=== PATIENT | female | born 1995 | race American Indian/Alaskan Native ===

== ENCOUNTER 2017-08-21 16:17 | Emergency (ER) | payer SELFPAY | END 2017-08-21 16:33 | disposition left against medical advice (07) | LOC: ED 16:17 | DX: R11.10 Vomiting, unspecified (principal); Z53.21 Procedure and treatment not carried out due to patient leaving prior to being seen by health care provider ==

== ENCOUNTER 2017-12-19 11:25 | Emergency (ER) | payer SELFPAY ==
[2017-12-19 11:33] VITALS: BP 102/69
--- NOTE | 2017-12-19 13:23 | Emergency Department Report ---
ED General Adult HPI - General Chief complaint: Chest Pain Stated complaint: CHEST PAIN Time Seen by Provider: 12/19/17 13:13 Source: patient Mode of arrival: Ambulatory Limitations: No Limitations - History of Present Illness Initial comments: Patient is a 22-year-old Afghan female who is presenting with some chest discomfort. Patient states is intermittent and lasts for several minutes at a time. States since started after lifting 3 gallons of milk yesterday, bringing her groceries into the house. Patient states she is only having chest pain after she lives things or bends over. The last for several minutes and then dissipate. Patient denies any shortness of breath fevers chills nausea vomiting at this time. However she has had some nausea vomiting during his . Patient is 8 weeks . - Related Data Previous Rx's Medication Instructions Recorded Last Taken Type Azithromycin [Zithromax TAB] 500 mg PO QDAY #4 tablet 01/08/15 Unknown Rx Nitrofurantoin [place]/M-Cryst 100 mg PO Q12HR #14 capsule 01/08/15 Unknown Rx [Macrobid CAP] Phenazopyridine [Pyridium] 200 mg PO TID #6 tab 01/08/15 Unknown Rx Ibuprofen [Motrin] 800 mg PO Q8HR PRN #20 tablet 02/21/15 Unknown Rx Promethazine Dm [Phenergan Dm 5 ml PO Q6H PRN #60 ml 02/21/15 Unknown Rx 6.25/15 mg 5 ml] Allergies Allergy/AdvReac Type Severity Reaction Status Date / Time No Known Allergies Allergy Verified 12/19/17 11:30 ED Review of Systems ROS: Stated complaint: CHEST PAIN Other details as noted in HPI Comment: All other systems reviewed and negative ED Past Medical Hx - Past Medical History Hx Hypertension: Yes Hx Headaches / Migraines: Yes Hx Psychiatric Treatment: Yes (Anxiety) - Surgical History Past Surgical History?: No - Social History Smoking Status: Never Smoker Substance Use Type: None - Medications Home Medications: Home Medications Medication Instructions Recorded Confirmed Last Taken Type Azithromycin [Zithromax TAB] 500 mg PO QDAY #4 tablet 01/08/15 Unknown Rx Nitrofurantoin [place]/M-Cryst 100 mg PO Q12HR #14 capsule 01/08/15 Unknown Rx [Macrobid CAP] Phenazopyridine [Pyridium] 200 mg PO TID #6 tab 01/08/15 Unknown Rx Ibuprofen [Motrin] 800 mg PO Q8HR PRN #20 tablet 02/21/15 Unknown Rx Promethazine Dm [Phenergan Dm 5 ml PO Q6H PRN #60 ml 02/21/15 Unknown Rx 6.25/15 mg 5 ml] ED Physical Exam - General Limitations: No Limitations General appearance: alert, in no apparent distress - Head Head exam: Present: atraumatic, normocephalic - Eye Eye exam: Present: normal appearance - ENT ENT exam: Present: mucous membranes moist - Neck Neck exam: Present: normal inspection - Respiratory Respiratory exam: Present: normal lung sounds bilaterally. Absent: respiratory distress, wheezes, rales, rhonchi, accessory muscle use - Cardiovascular Cardiovascular Exam: Present: regular rate, normal rhythm. Absent: systolic murmur, diastolic murmur, rubs, gallop - GI/Abdominal GI/Abdominal exam: Present: soft, normal bowel sounds. Absent: distended, tenderness, guarding, rebound - Extremities Exam Extremities exam: Present: normal inspection - Back Exam Back exam: Present: normal inspection - Neurological Exam Neurological exam: Present: alert, oriented X3 - Psychiatric Psychiatric exam: Present: normal affect, normal mood - Skin Skin exam: Present: warm, dry, intact, normal color. Absent: rash ED Course Vital Signs 12/19/17 11:30 Temperature 98.2 F Pulse Rate 58 L Respiratory 18 Rate Blood Pressure 102/69 O2 Sat by Pulse 100 Oximetry ED Medical Decision Making - EKG Data -: EKG Interpreted by Fl EKG shows normal: sinus rhythm, axis, intervals, QRS complexes, ST-T waves Rate: normal - EKG Data Interpretation: normal EKG - Medical Decision Making Patient's EKG is within normal limits lungs clear to auscultation she is in no distress nor is she having chest pain at this time. Patient advised to avoid heavy lifting and she'll be discharged home. Patient continued to take Tylenol for pain. Critical care attestation.: If time is entered above; I have spent that time in minutes in the direct care of this critically ill patient, excluding procedure time. ED Disposition Clinical Impression: Atypical chest pain Disposition: DC-01 TO HOME OR SELFCARE Is pt being admited?: No Does the pt Need Aspirin: No Condition: Stable Instructions: Chest Pain (ED) Referrals: PRIMARY CARE, [Primary Care Provider] - 3-5 Days Time of Disposition: 13:23
== END 2017-12-19 13:28 | disposition home or self-care (01) ==
LOC: ED 11:25
DX: O26.891 Other specified pregnancy related conditions, first trimester (principal); R07.89 Other chest pain; O21.8 Other vomiting complicating pregnancy; O99.341 Other mental disorders complicating pregnancy, first trimester; O16.1 Unspecified maternal hypertension, first trimester; F41.9 Anxiety disorder, unspecified; Z3A.01 Less than 8 weeks gestation of pregnancy
CPT/HCPCS: 93005; 93010; 99283

== ENCOUNTER 2018-02-27 19:36 | Emergency (ER) | payer MEDICAID ==
[2018-02-27 19:46] VITALS: BP 114/58
[2018-02-27 21:52] LABS: HCG Qualitative,Urine Positive (Negative)
--- NOTE | 2018-02-27 22:16 | Emergency Department Report ---
ED Female HPI - General Chief complaint: Abdominal Pain Stated complaint: 18WKS /NO BABY MOVEMENT Time Seen by Provider: 02/27/18 20:07 Source: patient Mode of arrival: Ambulatory Limitations: No Limitations - History of Present Illness Initial comments: 22-year-old female reports being 18 weeks 2 days , confirmed with a pelvic ultrasound at [facility] presents emergency department with questions of baby movement and wanting to see the baby on ultrasound. She reports since her discovery of being . She has not yet followed up with an TEST DESK SUPERVISOR and is unsure if the baby has been moving. She has not yet followed TEST DESK SUPERVISOR and is due to follow up on the of this month (in 2 days). She denies any abdominal pain, cramping, vaginal bleeding, loss of vaginal fluid. According to triage states that she has sharp pain to her left elbow. Ms. Medina states that there is no pain. She reports, no nausea, vomiting, no chest pain, palpitations, no headaches, no presyncope, no abdominal trauma. Severity scale (0 -10): 0 Are you Now?: Yes Last Menstrual Period: 11/26/17 EDC: 09/02/18 Associated Symptoms: denies: nausea/vomiting, fever/chills, loss of appetite, dysuria, hematuria, rash, shortness of breath, syncope, weakness - Related Data Previous Rx's Medication Instructions Recorded Last Taken Type Azithromycin [Zithromax TAB] 500 mg PO QDAY #4 tablet 01/08/[address] [facility]/M-Cryst 100 mg PO Q12HR #14 capsule 01/08/15 Unknown Rx [Macrobid CAP] Phenazopyridine [Pyridium] 200 mg PO TID #6 tab 01/08/15 Unknown Rx Ibuprofen [Motrin] 800 mg PO Q8HR PRN #20 tablet 02/21/15 Unknown Rx Promethazine Dm (Nf) [Phenergan Dm 5 ml PO Q6H PRN #60 ml 02/21/15 Unknown Rx 6.25/15 mg 5 ml] Allergies Allergy/AdvReac Type Severity Reaction Status Date / Time No Known Allergies Allergy Verified 12/19/17 11:30 ED Review of Systems ROS: Stated complaint: 18WKS /NO BABY MOVEMENT Other details as noted in HPI Constitutional: denies: chills, fever Eyes: denies: eye pain, eye discharge, vision change ENT: denies: ear pain, throat pain Respiratory: denies: cough, shortness of breath, wheezing Cardiovascular: denies: chest pain, palpitations Endocrine: no symptoms reported Gastrointestinal: denies: abdominal pain, nausea, diarrhea Genitourinary: denies: urgency, dysuria, discharge Musculoskeletal: denies: back pain, joint swelling, arthralgia Skin: denies: rash, lesions Neurological: denies: headache, weakness, paresthesias Psychiatric: denies: anxiety, depression Hematological/Lymphatic: denies: easy bleeding, easy bruising ED Past Medical Hx - Past Medical History Previous Medical History?: Yes Hx Hypertension: Yes Hx Headaches / Migraines: Yes Hx Psychiatric Treatment: Yes (Anxiety) - Surgical History Past Surgical History?: No - Social History Smoking Status: Never Smoker Substance Use Type: None - Medications Home Medications: Home Medications Medication Instructions Recorded Confirmed Last Taken Type Azithromycin [Zithromax TAB] 500 mg PO QDAY #4 tablet 01/08/[address] [facility]/M-Cryst 100 mg PO Q12HR #14 capsule 01/08/15 Unknown Rx [Macrobid CAP] Phenazopyridine [Pyridium] 200 mg PO TID #6 tab 01/08/15 Unknown Rx Ibuprofen [Motrin] 800 mg PO Q8HR PRN #20 tablet 02/21/15 Unknown Rx Promethazine Dm (Nf) [Phenergan Dm 5 ml PO Q6H PRN #60 ml 02/21/15 Unknown Rx 6.25/15 mg 5 ml] ED Physical Exam - General Limitations: No Limitations General appearance: alert, in no apparent distress - Head Head exam: Present: atraumatic, normocephalic - Eye Eye exam: Present: normal appearance - ENT ENT exam: Present: mucous membranes moist - Neck Neck exam: Present: normal inspection - Respiratory Respiratory exam: Present: normal lung sounds bilaterally. Absent: respiratory distress - Cardiovascular Cardiovascular Exam: Present: regular rate, normal rhythm. Absent: systolic murmur, diastolic murmur, rubs, gallop - GI/Abdominal GI/Abdominal exam: Present: soft, normal bowel sounds - Extremities Exam Extremities exam: Present: normal inspection - Back Exam Back exam: Present: normal inspection - Neurological Exam Neurological exam: Present: alert, oriented X3 - Psychiatric Psychiatric exam: Present: normal affect, normal mood - Skin Skin exam: Present: warm, dry, intact, normal color. Absent: rash ED Course Vital Signs 02/27/18 19:41 Temperature 98.8 F Pulse Rate 99 H Respiratory 18 Rate Blood Pressure 114/58 O2 Sat by Pulse 100 Oximetry ED Medical Decision Making - Medical Decision Making Bedside ultrasound was obtained to verify . Heartbeat was visualized at 150 bpm and discussed with patient. Placenta was also visualized. No obvious active bleeding. No signs of distress. Movement was also visualized. Mom came immediately relieved after verifying heartbeat and movement and felt comfortable to await her scheduled appointment in 2 days with TEST DESK SUPERVISOR for further evaluation. We did discuss hydration and vitamins. The contract technician was also present Critical care attestation.: If time is entered above; I have spent that time in minutes in the direct care of this critically ill patient, excluding procedure time. ED Disposition Clinical Impression: Disposition: DC-01 TO HOME OR SELFCARE Is pt being admited?: No Does the pt Need Aspirin: No Condition: Stable Instructions: (ED) Referrals: OSCAR,ED, MD [Primary Care Provider] - 03/01/18 (PLEASE KEEP YOU SCHEDULED APPOINTMENT ON THE . )
== END 2018-02-27 22:38 | disposition home or self-care (01) ==
LOC: ED 19:36
DX: O26.892 Other specified pregnancy related conditions, second trimester (principal); M25.522 Pain in left elbow; I10 Essential (primary) hypertension; G43.909 Migraine, unspecified, not intractable, without status migrainosus; F41.9 Anxiety disorder, unspecified; Z79.899 Other long term (current) drug therapy; Z3A.18 18 weeks gestation of pregnancy
CPT/HCPCS: 36415; 81025; 84702; 99283

== ENCOUNTER 2018-05-17 16:11 | Outpatient (CLI) | payer MEDICAID ==
[2018-05-17 17:45] VITALS: BP 99/59
[2018-05-17 18:49] LABS: Bilirubin,Urine NEG (Negative); Blood,Urine NEG (Negative); Color,Urine Yellow (Yellow); Mucus,Urine 3+ /HPF
== END 2018-05-17 19:20 | disposition home or self-care (01) ==
LOC: TRG 16:11
PROVIDERS: ATTEND Obstetrics & Gynecology
DX: O47.03 False labor before 37 completed weeks of gestation, third trimester (principal); Z3A.29 29 weeks gestation of pregnancy; Z87.891 Personal history of nicotine dependence
CPT/HCPCS: 59025; 81001

== ENCOUNTER 2018-07-12 10:11 | Outpatient (CLI) | payer MEDICAID | END 2018-07-12 11:54 | disposition home or self-care (01) | LOC: TRG 10:11 | CPT/HCPCS: 59025 ==

== ENCOUNTER 2018-07-16 10:12 | Outpatient (CLI) | payer MEDICAID ==
[2018-07-16] MEDS ORDERED: TYLENOL PO ONE (10:54)
[2018-07-16] MEDS ORDERED: TYLENOL ONE (10:58)
[2018-07-16 11:02] VITALS: BP 105/67
[2018-07-16 11:48] LABS: Bacteria,Urine 1+ /HPF (Negative); Bilirubin,Urine NEG (Negative); Blood,Urine NEG (Negative); Color,Urine Yellow (Yellow); Mucus,Urine FEW /HPF; Protein,Urine <15 mg/dL mg/dL (Negative)
== END 2018-07-16 11:32 | disposition home or self-care (01) ==
LOC: TRG 10:12
PROVIDERS: ATTEND Obstetrics & Gynecology
DX: O47.03 False labor before 37 completed weeks of gestation, third trimester (principal); Z3A.37 37 weeks gestation of pregnancy; F17.200 Nicotine dependence, unspecified, uncomplicated
CPT/HCPCS: 59025; 81001

== ENCOUNTER 2018-08-05 22:04 | Inpatient (IN) | payer MEDICAID ==
[2018-08-05] MEDS ORDERED: XYLOCAINE 2% INFILTRATI ONE (22:50)
[2018-08-05] MEDS ORDERED: STADOL IV PRN (22:50)
[2018-08-05] MEDS ORDERED: MINERAL OIL PO PRN (22:50)
[2018-08-05] MEDS ORDERED: AMPICILLIN/NS 2 GM/100 ML 2 GM/100 ML BAG IV ONE (22:50)
[2018-08-05] MEDS ORDERED: BRETHINE SUB-Q PRN (22:50)
[2018-08-05] MEDS ORDERED: ZOFRAN IV PRN (22:50)
[2018-08-05] MEDS ORDERED: SUBLIMAZE IV PRN (22:50)
[2018-08-05] MEDS ORDERED: LACTATED RINGERS 1,000 ML IV SCH (23:00)
[2018-08-05] MEDS ORDERED: PITOCin/NS 20 UNIT/1000ML DRIP 20 UNITS/1,000 ML BAG IV SCH (23:00)
[2018-08-06 00:06] LABS: Hematocrit 31.1 % (30.3-42.9); Hemoglobin 10.6 gm/dl (10.1-14.3); Mean Corpuscular HGB Conc 34 % (30-34); Mean Corpuscular Volume 80 fl (79-97); Platelet Count 217 K/mm3 (140-440); Red Blood Count 3.89 M/mm3 (3.65-5.03); Red Cell Distribution Width 15.9 % (13.2-15.2)
[2018-08-06] MEDS ORDERED: NARCAN 2 MG/2 ML IV PRN (00:10)
--- NOTE | 2018-08-06 00:10 | Anesthesia Consultation ---
Anesthesia Consult and Med Hx Date of service: 08/06/18 - Airway Anesthetic Teeth Evaluation: Good ROM Head & Neck: Adequate Mental/Hyoid Distance: Adequate Mallampati Class: Class II Intubation Access Assessment: Probably Good - Pulmonary Exam CTA: Yes - Cardiac Exam Cardiac Exam: RRR - Pre-Operative Health Status ASA Pre-Surgery Classification: ASA2 Proposed Anesthetic Plan: Epidural - Pulmonary Hx Asthma: No - Cardiovascular System Hx Hypertension: No - Central Nervous System Hx Seizures: No Hx Psychiatric Problems: No - Endocrine Hx Renal Disease: No Hx Hypothyroidism: No Hx Hyperthyroidism: No - Hematic Hx Anemia: No Hx Sickle Cell Disease: No - Other Systems Hx Alcohol Use: No
[2018-08-06] MEDS ORDERED: fentaNYL-BUPIV 2 MCG/ML-0.125% 200 MCG/100 ML BAG EPIDURAL SCH (01:00)
--- NOTE | 2018-08-06 04:03 | History and Physical Report ---
History of Present Illness Date of examination: 08/06/18 Date of admission: 08/05/18 22:55 Chief complaint: painful contractions History of present illness: EDC Calculations by LMP: 08/02/2018 Past History : 2 Term Births: 0 Premature Births: 0 Living Children: 0 Para: 0 Mult. Births: 0 Prev : 0 Aborta: 1 Elect. Ab: 0 Spont. Ab: 1 Ectopics: 0 # 1 Delivery date: 2010 Weeks Gestation: 8 Delivery type: SAB Comments: No D&C Past Medical History: Anxiety Hypertension Past Surgical History: negative Family History Summary: Other family member - Has No Family History of Ovarvian Cancer - Entered On: 03/15/2018 Other family member - Has No Family History of Colon Cancer - Entered On: 03/15/2018 Other family member - Has Family History of Hypertension - Entered On: 03/15/2018 Other family member - Has Family History of Diabetes - Entered On: 03/15/2018 Other family member - Has Family History of Coronary Heart Disease - Entered On: 03/15/2018 Other family member - Has Family History Breast Cancer - Entered On: 03/15/2018 Social History: Marital Status: Single Children: 0 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 Risk Factors: Smoked Tobacco Use: Current every day smoker Cigarettes: Yes -- 1/2 pack(s) per day, Year started: 2012 Counseled to quit/cut down: yes Drug use: yes Substance: marijuana HIV high-risk behavior: low risk Alcohol use: yes Drinks per day: social Dietary Counseling: pn yes Past Medical History Anesthesia Complications: negative Anemia: negative Autoimmune Disorder: negative Bleeding Disorder: negative Blood Transfusions: negative Breast Disease: negative Diabetes: negative Heart Disease: negative Hypertension: positive Hepatitis/Liver Disease: negative Kidney Disease/UTI: negative Neurologic/Epilepsy/Migraines: negative Phlebitis/Varicosities: negative Psychiatric: negative Pulmonary Disease/Asthma: negative Thyroid Disease: negative Hospitalizations: negative Surgery (Non-bag filler): negative Abnormal PAP: negative Uterine Anomaly: negative Social Hx: Marital Status: Single Children: 0 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 of genital herpes: no Genetic History Congenital Heart Defect: Mom: no Dad: no Daja Disease: Mom: no Dad: no Thalassemia Mom: no Dad: no Neural Tube Defect Mom: no Dad: no Down's Syndrome Mom: no Dad: no Dl-Sachs Mom: no Dad: no Sickle Cell Disease/Trait Mom: no Dad: no Hemophilia Mom: no Dad: no Muscular Dystrophy Mom: no Dad: no Cystic Fibrosis Mom: no Dad: no Tameka Chorea Mom: no Dad: no Mental Retardation Mom: no Dad: no Fragile X Mom: no Dad: no Other Genetic/Chromosomal Disorder Mom: no Dad: no Child w/other defect Mom: no Dad: no Enviromental Exposures Xray Exposure: no Medication, drug, or alcohol use since LMP: yes Chemical/Other Exposure: no Exposure to Cat Liter: no Hx of Parvovirus (Fifth Disease): no Active Medications (reviewed today): VITAMIN PLUS LOW IRON 27-1 MG ORAL TABLET ( VIT-FE FUMARATE-FA) 1 po q day as directed Current Allergies (reviewed today): No known allergies Past History Past Medical History: other (see HPI) Past Surgical History: other (See HPI) EKG MONITOR TECH History: trichomonas Family/Genetic History: other (see HPI) - Obstetrical History Expected Date of Delivery: 08/02/18 Actual Gestation: 40 Week(s) 4 Day(s) : 2 Para: 0 Hx # Term Pregnancies: 0 Number of Pregnancies: 0 Spontaneous Abortions: 1 Induced : 0 Number of Living Children: 0 Medications and Allergies Allergies Allergy/AdvReac Type Severity Reaction Status Date / Time No Known Allergies Allergy Verified 04/20/18 23:36 Home Medications Medication Instructions Recorded Confirmed Last Taken Type Azithromycin [Zithromax TAB] 500 mg PO QDAY #4 tablet 01/08/15 Unknown Rx Nitrofurantoin [place]/M-Cryst 100 mg PO Q12HR #14 capsule 01/08/15 Unknown Rx [Macrobid CAP] Phenazopyridine [Pyridium] 200 mg PO TID #6 tab 01/08/15 Unknown Rx Ibuprofen [Motrin] 800 mg PO Q8HR PRN #20 tablet 02/21/15 Unknown Rx Promethazine Dm (Nf) [Phenergan Dm 5 ml PO Q6H PRN #60 ml 02/21/15 Unknown Rx 6.25/15 mg 5 ml] Active Meds: Active Medications Butorphanol Tartrate (Stadol) 2 mg IV Q2H PRN PRN Reason: Pain , Severe (7-10) Ephedrine Sulfate (Ephedrine Sulfate) 10 mg IV Q2M PRN PRN Reason: Hypotension Fentanyl (Sublimaze) 100 mcg IV Q2H PRN PRN Reason: Labor Pain Last Admin: 08/06/18 02:04 Dose: 100 mcg Documented by: Ampicillin Sodium (Ampicillin/Ns 1 Gm/50 Ml) 1 gm in 50 mls @ 100 mls/hr IV Q4HR LAURIE; Protocol Lactated Ringer's (Lactated Ringers) 1,000 mls @ 125 mls/hr IV DIRECT LAURIE Last Admin: 08/05/18 22:30 Dose: 125 mls/hr Documented by: Oxytocin/Sodium Chloride (Pitocin/Ns 20 Unit/1000ml Drip) 20 units in 1,000 mls @ 125 mls/hr IV DIRECT LAURIE Fentanyl/Bupivacaine/Sodium Chlor (Fentanyl-Bupiv 2 Mcg/Ml-0.125%) 200 mcg in 100 mls @ 12 mls/hr EPIDURAL TITR LAURIE; Protocol Last Admin: 08/06/18 02:06 Dose: 12 mls/hr Documented by: Mineral Oil (Mineral Oil) 30 ml PO QHS PRN PRN Reason: Constipation Naloxone HCl (Narcan 2 Mg/2 Ml) 0.2 mg IV Q5M PRN PRN Reason: Respiratory sedation Ondansetron HCl (Zofran) 4 mg IV Q8H PRN PRN Reason: Nausea And Vomiting Terbutaline Sulfate (Brethine) 0.25 mg SUB-Q ONCE PRN PRN Reason: Hyperstimulation/Hypertonicity Review of Systems All systems: negative - Vital Signs Vital signs: Vital Signs Pulse BP 105 H 109/67 08/05/18 22:14 08/05/18 22:14 Temp Pulse Resp BP Pulse Ox 98.5 F 90 20 107/65 08/05/18 22:27 08/06/18 03:56 08/06/18 02:04 08/06/18 03:56 - Physical Exam Breasts: Positive: normal Cardiovascular: Regular rate Lungs: Positive: Normal air movement Abdomen: Positive: normal appearance, soft Genitourinary (Female): Positive: normal external genitalia, normal perenium Vulva: both: normal Vagina: Positive: normal moisture - Obstetrical FHR: category 1 Uterine Contraction Monitor Mode: External Cervical Dilatation: 4.5 Cervical Effacement Percentage: 80 station: -2 Uterine Contraction Pattern: Irregular Uterine Tone Measurement Phase: Contraction Uterine Contraction Intensity: Mild Results Result Diagrams: 08/05/18 23:40 Abnormal lab results 08/05/18 Range/Units 23:40 WBC 12.2 H (4.5-11.0) K/mm3 MCH 27 L (28-32) pg RDW 15.9 H (13.2-15.2) % All other labs normal. Assessment and Plan 22y/o @ 40+4 weeks presented in labor to triage. She quickly changed from 1.5 - 3cms in triage within an hour. GBS POS - first dose ampicillin @ 2300. Admission orders in EMR. Will reevaluate need for augmentation as needed. - Patient Problems (1) 40 weeks gestation of Current Visit: Yes Status: Acute (2) Active labor at term Current Visit: Yes Status: Acute (3) Positive GBS test Current Visit: Yes Status: Acute
[2018-08-06] MEDS: AMPICILLIN/NS 1 GM/50 ML 1 GM/50 ML BAG IV SCH ×2 (05:13→08:55)
--- NOTE | 2018-08-06 06:12 | Progress Note ---
Assessment and Plan pt mostly comfortable with epidural, unable to move legs at this time. BBOW noted during SVE - AROM'd with moderate mec. discussed w/patient. 2 doses of ampicillin infused for GBS prophylaxis. Continue current management, anticipate . - Patient Problems (1) 40 weeks gestation of Current Visit: Yes Status: Acute (2) Active labor at term Current Visit: Yes Status: Acute (3) Positive GBS test Current Visit: Yes Status: Acute Subjective - Subjective Date of service: 08/06/18 Principal diagnosis: IUP 40+4, active labor, epidural, mec stained fluid Interval history: EDC Calculations by LMP: 08/02/2018 Past History : 2 Term Births: 0 Premature Births: 0 Living Children: 0 Para: 0 Mult. Births: 0 Prev : 0 Aborta: 1 Elect. Ab: 0 Spont. Ab: 1 Ectopics: 0 # 1 Delivery date: 2010 Weeks Gestation: 8 Delivery type: SAB Comments: No D&C Past Medical History: Anxiety Hypertension Past Surgical History: negative Family History Summary: Other family member - Has No Family History of Ovarvian Cancer - Entered On: 03/15/2018 Other family member - Has No Family History of Colon Cancer - Entered On: 03/15/2018 Other family member - Has Family History of Hypertension - Entered On: 03/15/2018 Other family member - Has Family History of Diabetes - Entered On: 03/15/2018 Other family member - Has Family History of Coronary Heart Disease - Entered On: 03/15/2018 Other family member - Has Family History Breast Cancer - Entered On: 03/15/2018 Social History: Marital Status: Single Children: 0 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 Risk Factors: Smoked Tobacco Use: Current every day smoker Cigarettes: Yes -- 1/2 pack(s) per day, Year started: 2012 Counseled to quit/cut down: yes Drug use: yes Substance: marijuana HIV high-risk behavior: low risk Alcohol use: yes Drinks per day: social Dietary Counseling: pn yes Past Medical History Anesthesia Complications: negative Anemia: negative Autoimmune Disorder: negative Bleeding Disorder: negative Blood Transfusions: negative Breast Disease: negative Diabetes: negative Heart Disease: negative Hypertension: positive Hepatitis/Liver Disease: negative Kidney Disease/UTI: negative Neurologic/Epilepsy/Migraines: negative Phlebitis/Varicosities: negative Psychiatric: negative Pulmonary Disease/Asthma: negative Thyroid Disease: negative Hospitalizations: negative Surgery (Non-yarn carrier): negative Abnormal PAP: negative Uterine Anomaly: negative Social Hx: Marital Status: Single Children: 0 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 of genital herpes: no Genetic History Congenital Heart Defect: Mom: no Dad: no Daja Disease: Mom: no Dad: no Thalassemia Mom: no Dad: no Neural Tube Defect Mom: no Dad: no Down's Syndrome Mom: no Dad: no Dl-Sachs Mom: no Dad: no Sickle Cell Disease/Trait Mom: no Dad: no Hemophilia Mom: no Dad: no Muscular Dystrophy Mom: no Dad: no Cystic Fibrosis Mom: no Dad: no Tameka Chorea Mom: no Dad: no Mental Retardation Mom: no Dad: no Fragile X Mom: no Dad: no Other Genetic/Chromosomal Disorder Mom: no Dad: no Child w/other defect Mom: no Dad: no Enviromental Exposures Xray Exposure: no Medication, drug, or alcohol use since LMP: yes Chemical/Other Exposure: no Exposure to Cat Liter: no Hx of Parvovirus (Fifth Disease): no Active Medications (reviewed today): VITAMIN PLUS LOW IRON 27-1 MG ORAL TABLET ( VIT-FE FUMARATE-FA) 1 po q day as directed Current Allergies (reviewed today): No known allergies Patient reports: new complaints ("ctx in my butt") Objective - Vital Signs Vital Signs: Vital Signs - 12hr 08/05/18 08/05/18 08/05/18 22:14 22:27 23:59 Temperature 98.5 F Pulse Rate 105 H 105 H 89 Respiratory 18 Rate Blood Pressure 109/67 122/75 Blood Pressure 109/67 [Left] 08/06/18 08/06/18 08/06/18 00:16 00:18 00:20 Temperature Pulse Rate 100 H 100 H 110 H Respiratory Rate Blood Pressure 142/73 146/63 130/76 Blood Pressure [Left] 08/06/18 08/06/18 08/06/18 00:22 00:24 00:26 Temperature Pulse Rate 92 H 87 86 Respiratory Rate Blood Pressure 117/65 111/64 111/61 Blood Pressure [Left] 08/06/18 08/06/18 08/06/18 00:29 00:30 00:32 Temperature Pulse Rate 108 H 85 84 Respiratory Rate Blood Pressure 119/79 115/59 106/56 Blood Pressure [Left] 08/06/18 08/06/18 08/06/18 00:34 00:38 00:55 Temperature Pulse Rate 90 85 81 Respiratory Rate Blood Pressure 101/52 102/59 97/54 Blood Pressure [Left] 08/06/18 08/06/18 08/06/18 01:11 01:25 01:43 Temperature Pulse Rate 77 89 93 H Respiratory Rate Blood Pressure 104/59 110/65 126/84 Blood Pressure [Left] 08/06/18 08/06/18 08/06/18 01:56 02:04 02:11 Temperature Pulse Rate 90 84 Respiratory 20 Rate Blood Pressure 128/81 120/82 Blood Pressure [Left] 08/06/18 08/06/18 08/06/18 02:25 02:41 02:57 Temperature Pulse Rate 80 91 H 78 Respiratory Rate Blood Pressure 121/63 103/62 100/61 Blood Pressure [Left] 08/06/18 08/06/18 08/06/18 03:26 03:41 03:56 Temperature Pulse Rate 100 H 96 H 90 Respiratory Rate Blood Pressure 103/58 108/65 107/65 Blood Pressure [Left] 08/06/18 08/06/18 08/06/18 04:11 04:25 04:41 Temperature Pulse Rate 92 H 91 H 93 H Respiratory Rate Blood Pressure 94/54 107/61 100/58 Blood Pressure [Left] 08/06/18 08/06/18 08/06/18 04:55 05:10 05:20 Temperature Pulse Rate 83 89 Respiratory 18 Rate Blood Pressure 102/58 105/65 Blood Pressure [Left] 08/06/18 08/06/18 05:26 05:42 Temperature 98.7 F Pulse Rate 98 H 98 H Respiratory 18 Rate Blood Pressure 112/71 178/69 Blood Pressure [Left] - Exam Breasts: normal Cardiovascular: Regular rate Lungs: Clear to auscultation, Normal air movement Abdomen: Present: normal appearance, soft Vulva: both: normal Uterus: Present: normal FHR: category 1 Uterine Contraction Monitor Mode: External Cervical Dilatation: 8 (AROM - MEC) Cervical Effacement Percentage: 100 station: 0 Uterine Contraction Frequency (min): 3-5 Uterine Contraction Duration: 60 Uterine Contraction Pattern: Regular Uterine Tone Measurement Phase: Contraction Uterine Contraction Intensity: Moderate Extremities: normal Deep Tendon Reflex Grade: Normal +2 - Labs Labs: Abnormal Labs 08/05/18 23:40 WBC 12.2 H MCH 27 L RDW 15.9 H Laboratory Results - last 24 hr 08/05/18 08/05/18 02:00 23:40 WBC 12.2 H RBC 3.89 Hgb 10.6 Hct 31.1 MCV 80 MCH 27 L MCHC 34 RDW 15.9 H Plt Count 217 Blood Type A POSITIVE Antibody Screen Negative
--- NOTE | 2018-08-06 07:42 | Progress Note ---
Assessment and Plan 40w4d. Patient reports +rectal pressure with contractions, intermittent, comfortable between contractions. SVE 9/100/+1. Category 1 tracing. Repositioned to tailor sitting. DWP plan to get her more comfortable with epidural and let her labor down. Patient requesting water to drink, reminded ice chips only at this time. Will notify RN of assessment and continue to monitor. Anticipate SVE. Subjective - Subjective Date of service: 08/06/18 Principal diagnosis: IUP 40+4, active labor, epidural, mec stained fluid Patient reports: new complaints ("pressure in my butt"), movement normal Objective - Vital Signs Vital Signs: Vital Signs - 12hr 08/05/18 08/05/18 08/05/18 22:14 22:27 23:59 Temperature 98.5 F Pulse Rate 105 H 105 H 89 Respiratory 18 Rate Blood Pressure 109/67 122/75 Blood Pressure 109/67 [Left] 08/06/18 08/06/18 08/06/18 00:16 00:18 00:20 Temperature Pulse Rate 100 H 100 H 110 H Respiratory Rate Blood Pressure 142/73 146/63 130/76 Blood Pressure [Left] 08/06/18 08/06/18 08/06/18 00:22 00:24 00:26 Temperature Pulse Rate 92 H 87 86 Respiratory Rate Blood Pressure 117/65 111/64 111/61 Blood Pressure [Left] 08/06/18 08/06/18 08/06/18 00:29 00:30 00:32 Temperature Pulse Rate 108 H 85 84 Respiratory Rate Blood Pressure 119/79 115/59 106/56 Blood Pressure [Left] 08/06/18 08/06/18 08/06/18 00:34 00:38 00:55 Temperature Pulse Rate 90 85 81 Respiratory Rate Blood Pressure 101/52 102/59 97/54 Blood Pressure [Left] 08/06/18 08/06/18 08/06/18 01:11 01:25 01:43 Temperature Pulse Rate 77 89 93 H Respiratory Rate Blood Pressure 104/59 110/65 126/84 Blood Pressure [Left] 08/06/18 08/06/18 08/06/18 01:56 02:04 02:11 Temperature Pulse Rate 90 84 Respiratory 20 Rate Blood Pressure 128/81 120/82 Blood Pressure [Left] 08/06/18 08/06/18 08/06/18 02:25 02:41 02:57 Temperature Pulse Rate 80 91 H 78 Respiratory Rate Blood Pressure 121/63 103/62 100/61 Blood Pressure [Left] 08/06/18 08/06/18 08/06/18 03:26 03:41 03:56 Temperature Pulse Rate 100 H 96 H 90 Respiratory Rate Blood Pressure 103/58 108/65 107/65 Blood Pressure [Left] 08/06/18 08/06/18 08/06/18 04:11 04:25 04:41 Temperature Pulse Rate 92 H 91 H 93 H Respiratory Rate Blood Pressure 94/54 107/61 100/58 Blood Pressure [Left] 08/06/18 08/06/18 08/06/18 04:55 05:10 05:20 Temperature Pulse Rate 83 89 Respiratory 18 Rate Blood Pressure 102/58 105/65 Blood Pressure [Left] 08/06/18 08/06/18 08/06/18 05:26 05:42 06:10 Temperature 98.7 F 98.0 F Pulse Rate 98 H 98 H 65 Respiratory 18 18 Rate Blood Pressure 112/71 178/69 Blood Pressure 113/58 [Left] 08/06/18 08/06/18 08/06/18 06:11 06:27 06:41 Temperature Pulse Rate 83 99 H 100 H Respiratory Rate Blood Pressure 113/58 108/71 116/77 Blood Pressure [Left] 08/06/18 08/06/18 08/06/18 06:56 07:11 07:26 Temperature Pulse Rate 104 H 104 H 97 H Respiratory Rate Blood Pressure 115/68 121/87 110/71 Blood Pressure [Left] - Exam Cardiovascular: Regular rate, Normal S1, Normal S2 Lungs: Clear to auscultation Abdomen: Present: normal appearance, soft. Absent: distention, tenderness Vulva: both: normal Uterus: Present: normal FHR: auscultation normal Uterine Contraction Monitor Mode: External Cervical Dilatation: 9 Cervical Effacement Percentage: 100 station: 1 Uterine Contraction Frequency (min): 2-3 Uterine Contraction Duration: 70-100 Uterine Contraction Pattern: Regular Uterine Tone Measurement Phase: Contraction Uterine Contraction Intensity: Moderate Extremities: normal Deep Tendon Reflex Grade: Normal +2 - Labs Labs: Abnormal Labs 08/05/18 23:40 WBC 12.2 H MCH 27 L RDW 15.9 H Laboratory Results - last 24 hr 08/05/18 08/05/18 02:00 23:40 WBC 12.2 H RBC 3.89 Hgb 10.6 Hct 31.1 MCV 80 MCH 27 L MCHC 34 RDW 15.9 H Plt Count 217 Blood Type A POSITIVE Antibody Screen Negative
[2018-08-06] MEDS ORDERED: XYLOCAINE 2% INFILTRATI ONE (09:32)
--- NOTE | 2018-08-06 10:03 | Procedure Note ---
OB Delivery Note - Delivery Date of Delivery: 08/06/18 [employer] Floor Runner: DOROTEO LIAO Estimated blood loss: other (350) - Vaginal Delivery presentation: vertex Delivery position: OA Intrapartum events: meconium Delivery induction: none Delivery augmentation: rupture of membranes Delivery monitor: external FHT, external uterine Route of delivery: Delivery placenta: spontaneous Delivery cord: nuchal cord (x1 reduced, loose) Episiotomy: none Delivery laceration: 2nd degree Delivery repair: vicryl Anesthesia: local, epidural Delivery comments: of viable male , nuchal cord x1, reduced after delivery of head without complication. placed on mother's abdomen. Cord clamped x2 and cut by CNM, handed off to awaiting NICU/Resus team for thick meconium. Deep suctioning performed by team. Apgars 8/8, weight 7#13. Placenta delivered complete, intact, 3vc. Sent to pathology for meconium. Pitocin to IV per protocol. 2nd degree laceration repaired with lidocaine, 3-0 vicryl in normal fashion. Hemostasis achieved. EBL 350ml. Fundus is firm. VSS. Mother and remain LDR stable condition. - A at 1 minute: 8 at 5 minutes: 8 Gender: Male (7#13)
[2018-08-06] MEDS ORDERED: ZOFRAN IV PRN (11:49)
[2018-08-06] MEDS ORDERED: TYLENOL PO PRN (11:49)
[2018-08-06] MEDS ORDERED: DULCOLAX PR PRN (11:49)
[2018-08-06] MEDS ORDERED: BENADRYL PO PRN (11:49)
[2018-08-06] MEDS ORDERED: LANSINOH TP PRN (11:49)
[2018-08-06] MEDS ORDERED: PITOCin/NS 20 UNIT/1000ML DRIP 20 UNITS/1,000 ML BAG IV SCH (11:49)
[2018-08-06] MEDS ORDERED: SODIUM CHLORIDE FLUSH SYRINGE 10 ML IV NR (11:49)
[2018-08-06] MEDS ORDERED: DERMOPLAST TP PRN (11:49)
[2018-08-06] MEDS ORDERED: PHENERGAN PO PRN (11:49)
[2018-08-06] MEDS ORDERED: MILK OF MAGNESIA PO PRN (11:49)
[2018-08-06] MEDS ORDERED: TUCKS PAD TP PRN (11:49)
[2018-08-06] MEDS: IBUPROFEN PO SCH (22:18)
[2018-08-06 22:54] LABS: Hematocrit 26.9 % (30.3-42.9); Hemoglobin 8.7 gm/dl (10.1-14.3)
--- NOTE | 2018-08-07 06:05 | Discharge Summary ---
Providers - Providers Date of Admission: 08/05/18 22:55 Date of discharge: 08/07/18 (pt agrees with d/c) Attending physician: MESFIN NOBLES 08/06/18 11:49 Consult to Crossing Tender [CONS] Routine Reason For Exam: assistance with , SNS 08/06/18 14:38 Consult to Case Management [CONS] Routine Services Needed at Discharge: Head Soft Sugar Operator Notified:: Tyjluiána Was contact made?: Yes Additional Physician Instructions: THC positive during Primary care physician: MESFIN NOBLES Hospitalization Reason for admission: active labor Episiotomy: none Laceration: 2nd degree Incision: normal, dry, intact Other procedures: none complications: none Discharge diagnosis: IUP at term delivered [place] baby: male Hospital course: uncomplicated vaginal delivery Pt sleeping No c/o voiced. VSS FF below umb Lochia small Perineum slight swelling intact H&H 12/31 drop r/t blood loss from delivery Asymptomatic anemia Doing well s/p vag delivery P: d/c today with instructions RTO 4 weeks PP care Circ in 1 week Condition at discharge: Good Disposition: DC-01 TO HOME OR SELFCARE - Discharge Diagnoses (1) Normal spontaneous vaginal delivery Status: Acute Comment: RTO 4 weeks PP Care Plan - Discharge Medications Prescriptions: Lidocain2.5%/Prilocai2.5% [Emla] 5 gm TP PRN #1 tube Ibuprofen [Motrin 800 MG tab] 800 mg PO TID PRN #30 tablet PRN Reason: Pain - Provider Discharge Summary Activity: routine, no sex for 6 weeks, no heavy lifting 4 weeks, no strenuous exercise Diet: routine Instructions: routine Additional instructions: [] Smoking cessation referral if applicable(refer to patient education folder for contact #) [] Refer to [facility] Booklet Call your doctor immediately for: * Fever > 100.5 * Heavy vaginal bleeding ( >1 pad per hour) * Severe persistent headache * Shortness of breath * Reddened, hot, painful area to leg or breast * Drainage or odor from incision. * Keep incision clean and dry at all times and follow doctor's instructions regarding bathing/showering - Follow up plan Follow up: MESFIN NOBLES MD [Primary Care Provider] - 09/05/18 (Congratulations! Please call [phone] to schedule your visit in 4 weeks and your son's circumcision in 1 week. Bring the EMLA cream with you to his visit. Do NOT use at home. Take medications as prescribed. Call with any concerns.)
[2018-08-07] MEDS: IBUPROFEN PO SCH (09:59)
[2018-08-07] MEDS ORDERED: PRENATAL VITAMIN PO SCH (10:00)
[2018-08-07] MEDS ORDERED: DEPO-PROVERA (CONTRACEPTION) IM NR (15:00)
[2018-08-07 16:40] VITALS: BP 92/58
== END 2018-08-07 16:35 | disposition home or self-care (01) | DRG 774 ==
LOC: TRG 22:04 → LD 22:55 → OB 08-06 11:12
PROVIDERS: ADMIT Obstetrics & Gynecology; ATTEND Obstetrics & Gynecology
PROC: 10907ZC Drainage of Amniotic Fluid, Therapeutic from Products of Conception, Via Natural or Artificial Opening (ICD-10-PCS; 2018-08-05)
PROC: 10E0XZZ Delivery of Products of Conception, External Approach (ICD-10-PCS; principal; 2018-08-06)
PROC: 0KQM0ZZ Repair Perineum Muscle, Open Approach (ICD-10-PCS; 2018-08-06)
PROC: 3E0R3BZ Introduction of Anesthetic Agent into Spinal Canal, Percutaneous Approach (ICD-10-PCS; 2018-08-06)
PROC: 00HU33Z Insertion of Infusion Device into Spinal Canal, Percutaneous Approach (ICD-10-PCS; 2018-08-06)
DX: O77.0 Labor and delivery complicated by meconium in amniotic fluid (principal); O10.02 Pre-existing essential hypertension complicating childbirth; O69.81X0 Labor and delivery complicated by cord around neck, without compression, not applicable or unspecified; F17.210 Nicotine dependence, cigarettes, uncomplicated; O99.324 Drug use complicating childbirth; F12.90 Cannabis use, unspecified, uncomplicated; O99.334 Smoking (tobacco) complicating childbirth; O99.824 Streptococcus B carrier state complicating childbirth; O99.344 Other mental disorders complicating childbirth; F41.9 Anxiety disorder, unspecified; O70.1 Second degree perineal laceration during delivery; Z3A.40 40 weeks gestation of pregnancy; Z37.0 Single live birth; Z83.3 Family history of diabetes mellitus; Z82.49 Family history of ischemic heart disease and other diseases of the circulatory system; Z80.3 Family history of malignant neoplasm of breast
CPT/HCPCS: 36415; 85014; 85018; 85027; 86592; 86850; 86900; 86901; 88307; G0378; J0290; J2590; J3010; J7120

== ENCOUNTER 2019-03-23 13:28 | Emergency (ER) | payer SELFPAY ==
--- NOTE | 2019-03-23 14:16 | Event Note ---
ED Screening Note Date of service: 03/23/19 Time: 14:14 ED Screening Note: This is a 23 y.o. F. that presents to the ER with sore throat for 2 days. Discomfort with swallowing. No meds for symptomatic relief. - cough Current smoker This initial assessment/diagnostic orders/clinical plan/treatment(s) is/are subject to change based on patients health status, clinical progression and re- assessment by fellow clinical providers in the ED. Further treatment and workup at subsequent clinical providers discretion. Patient/guardian urged not to elope from the ED as their condition may be serious if not clinically assessed and managed. Initial orders include: Rapid strep
[2019-03-23 14:19] VITALS: BP 99/54
[2019-03-23] MEDS ORDERED: LIDOCAINE VISCOUS 2% 15 ML ORAL LIQD PO ONE (14:37)
[2019-03-23] MEDS ORDERED: IBUPROFEN ORAL LIQD 100 MG/5 ML ORAL.LIQD PO ONE (14:37)
[2019-03-23] MEDS ORDERED: dexAMETHasone 20 MG/5 ML VIAL IM ONE (14:37)
[2019-03-23] MEDS ORDERED: ACETAMINOPHEN 325 MG/10.15 ML ORAL LIQD UNIT DOSE PO ONE (14:37)
--- NOTE | 2019-03-23 14:38 | Emergency Department Report ---
ED General Adult HPI - General Chief complaint: Sore Throat Stated complaint: TONSILS SWOLLEN/PAIN Time Seen by Provider: 03/23/19 14:13 Source: patient, RN notes reviewed Mode of arrival: Ambulatory Limitations: No Limitations - History of Present Illness Initial comments: This is a pleasant 23-year-old female. This patient is not known to this provid er previously. She states that she is not . She reports a history of streptococcal pharyngitis. She reports no travel outside the country. She presents to the ER with a complaint of sore throat and "I think I have strep." Positive pharyngeal pain, positive adenopathy, no cough, question fever. No sick contacts. No additional complaints. Symptoms constant over the past few days. They are improved in the emergency room with Tylenol, Motrin, steroids and viscous lidocaine. -: Gradual Quality: aching Consistency: constant Improves with: medication, rest Worsens with: eating - Related Data Previous Rx's Medication Instructions Recorded Last Taken Type Azithromycin [Zithromax TAB] 500 mg PO QDAY #4 tablet 01/08/15 07/06/18 Rx Nitrofurantoin Mckenzie/M-Cryst 100 mg PO Q12HR #14 capsule 01/08/15 Unknown Rx [Macrobid CAP] Phenazopyridine [Pyridium] 200 mg PO TID #6 tab 01/08/15 Unknown Rx Ibuprofen [Motrin] 800 mg PO Q8HR PRN #20 tablet 02/21/15 08/06/18 22:00 Rx Promethazine Dm (Nf) [Phenergan Dm 5 ml PO Q6H PRN #60 ml 02/21/15 Unknown Rx 6.25/15 mg 5 ml] Docusate Sodium [Colace] 100 mg PO BID PRN #60 capsule 08/07/18 Unknown Rx Ferrous Sulfate [Feosol 325 MG tab] 325 mg PO BID #60 tablet 08/07/18 Unknown Rx Ibuprofen [Motrin 800 MG tab] 800 mg PO TID PRN #30 tablet 08/07/18 Unknown Rx Lidocain2.5%/Prilocai2.5% [Emla] 5 gm TP PRN #1 tube 08/07/18 Unknown Rx Acetaminophen [Non-Aspirin Extra 500 mg PO Q6HR PRN #30 tablet 03/23/19 Unknown Rx Strength] Ibuprofen [Motrin] 600 mg PO Q8H PRN #30 tablet 03/23/19 Unknown Rx Penicillin V Potassium 500 mg PO TID #30 tablet 03/23/19 Unknown Rx Allergies Allergy/AdvReac Type Severity Reaction Status Date / Time No Known Allergies Allergy Verified 04/20/18 23:36 ED Review of Systems ROS: Stated complaint: TONSILS SWOLLEN/PAIN Other details as noted in HPI Constitutional: denies: fever Eyes: denies: eye discharge ENT: throat pain, congestion Respiratory: denies: cough Cardiovascular: as per HPI Endocrine: see HPI Gastrointestinal: as per HPI. denies: vomiting Genitourinary: as per HPI. denies: dysuria Musculoskeletal: arthralgia, myalgia Neurological: weakness ED Past Medical Hx - Past Medical History Previous Medical History?: No Hx Hypertension: No Hx Diabetes: No Hx Deep Vein Thrombosis: No Hx Renal Disease: No Hx Sickle Cell Disease: No Hx Headaches / Migraines: Yes Hx Seizures: No Hx Psychiatric Treatment: Yes (Anxiety) Hx Asthma: No Hx HIV: No - Surgical History Past Surgical History?: No - Social History Smoking Status: Never Smoker - Medications Home Medications: Home Medications Medication Instructions Recorded Confirmed Last Taken Type Azithromycin [Zithromax TAB] 500 mg PO QDAY #4 tablet 01/08/15 08/07/18 07/06/18 Rx Nitrofurantoin Mckenzie/M-Cryst 100 mg PO Q12HR #14 capsule 01/08/15 08/07/18 Unknown Rx [Macrobid CAP] Phenazopyridine [Pyridium] 200 mg PO TID #6 tab 01/08/15 08/07/18 Unknown Rx Ibuprofen [Motrin] 800 mg PO Q8HR PRN #20 tablet 02/21/15 08/07/18 08/06/18 22:00 Rx Promethazine Dm (Nf) [Phenergan Dm 5 ml PO Q6H PRN #60 ml 02/21/15 08/07/18 Unknown Rx 6.25/15 mg 5 ml] Docusate Sodium [Colace] 100 mg PO BID PRN #60 capsule 08/07/18 Unknown Rx Ferrous Sulfate [Feosol 325 MG tab] 325 mg PO BID #60 tablet 08/07/18 Unknown Rx Ibuprofen [Motrin 800 MG tab] 800 mg PO TID PRN #30 tablet 08/07/18 Unknown Rx Lidocain2.5%/Prilocai2.5% [Emla] 5 gm TP PRN #1 tube 08/07/18 Unknown Rx Acetaminophen [Non-Aspirin Extra 500 mg PO Q6HR PRN #30 tablet 03/23/19 Unknown Rx Strength] Ibuprofen [Motrin] 600 mg PO Q8H PRN #30 tablet 03/23/19 Unknown Rx Penicillin V Potassium 500 mg PO TID #30 tablet 03/23/19 Unknown Rx ED Physical Exam - General Limitations: No Limitations General appearance: alert, in no apparent distress - Head Head exam: Present: atraumatic, normocephalic - Eye Eye exam: Present: normal appearance, EOMI - ENT ENT exam: Present: normal exam, normal orophraynx, TM's normal bilaterally, normal external ear exam, other (pharyngeal erythema noted, however, no exudates noted) - Neck Neck exam: Present: normal inspection, full ROM, lymphadenopathy. Absent: tenderness, meningismus - Respiratory Respiratory exam: Present: normal lung sounds bilaterally. Absent: respiratory distress - Cardiovascular Cardiovascular Exam: Present: regular rate, normal rhythm, normal heart sounds. Absent: bradycardia, tachycardia, irregular rhythm, systolic murmur, diastolic murmur, rubs, gallop - GI/Abdominal GI/Abdominal exam: Present: soft. Absent: distended, tenderness, guarding, rebound, rigid, pulsatile mass - Extremities Exam Extremities exam: Present: normal inspection, full ROM, other (2+ pulses noted in the bilateral upper, lower extremities. There is no long bone tenderness. Musculoskeletal compartments are soft. The pelvis is stable.). Absent: pedal edema, calf tenderness - Back Exam Back exam: Present: normal inspection, full ROM. Absent: tenderness, CVA tenderness (R), CVA tenderness (L), paraspinal tenderness, vertebral tenderness - Neurological Exam Neurological exam: Present: alert, normal gait, other (there is no facial droop. The tongue is midline. Extraocular movements are intact bilaterally. Patient speaking in full complete sentences. Shoulder shrug is intact bilaterally. Hearing is grossly intact bilaterally. Visual acuity intact to finger counting and color perception at a close distance. 5/5 strength 4 extremities. Sensation intact to light touch in 4 extremities.). Absent: motor sensory deficit - Psychiatric Psychiatric exam: Present: normal affect, normal mood - Skin Skin exam: Present: warm, dry, intact, normal color. Absent: rash ED Course Vital Signs 03/23/19 14:12 Temperature 98.7 F Pulse Rate 104 H Respiratory 18 Rate Blood Pressure 99/54 O2 Sat by Pulse 100 Oximetry ED Medical Decision Making - Medical Decision Making Vital Signs 03/23/19 14:12 Temperature 98.7 F Pulse Rate 104 H Respiratory 18 Rate Blood Pressure 99/54 O2 Sat by Pulse 100 Oximetry Labs 03/23/19 14:18 Group A Strep Rapid Positive A Differential diagnosis, including not limited to: Pharyngitis, viral syndrome versus bacterial Assessment and plan: 23-year-old female with presumed streptococcal pharyngitis. She is afebrile with reassuring vital signs, has a positive strep screen, tachycardia resolved, she is tolerating liquid feeds, does not have any meningeal signs, and is nontoxic-appearing. She can be managed expectantly, and we'll start her on penicillin. We discussed expectant management and return precautions and she verbalizes understanding. Critical care attestation.: If time is entered above; I have spent that time in minutes in the direct care of this critically ill patient, excluding procedure time. ED Disposition Clinical Impression: Pharyngitis Qualifiers: Pharyngitis/tonsillitis etiology: other specified organisms Qualified Code(s): J02.8 - Acute pharyngitis due to other specified organisms Disposition: DC-01 TO HOME OR SELFCARE Is pt being admited?: No Does the pt Need Aspirin: No Condition: Stable Additional Instructions: Advance diet as tolerated. Drink plenty of fluids. Take the pain medications as needed and directed. Take antibiotics as directed. Make certain to wash hands before handling food, and before interacting with young children. Follow- up with the primary care doctor within the next 7-10 days. Return to emergency room right away with new, worsened, different symptoms, symptoms not present on initial emergency medicine evaluation. Cultures were sent today, results will be available in the next 3-5 days. Have your primary care doctor contact the medical records department to obtain culture results. Prescriptions: Ibuprofen [Motrin] 600 mg PO Q8H PRN #30 tablet PRN Reason: Pain Acetaminophen [Non-Aspirin Extra Strength] 500 mg PO Q6HR PRN #30 tablet PRN Reason: Pain , Severe (7-10) Penicillin V Potassium 500 mg PO TID #30 tablet Referrals: PRIMARY CARE, [Primary Care Provider] - 3-5 Days [facility] [Provider Group] - 3-5 Days [facility] [Provider Group] - 3-5 Days
[2019-03-23] MEDS ORDERED: PENICILLIN V POTASSIUM 250 MG TAB PO ONE (15:52)
== END 2019-03-23 16:43 | disposition home or self-care (01) ==
LOC: ED 13:28
DX: J02.9 Acute pharyngitis, unspecified (principal); G43.909 Migraine, unspecified, not intractable, without status migrainosus
CPT/HCPCS: 87430; 96372; 99283; J1100

== ENCOUNTER 2020-10-16 12:02 | Emergency (ER) | payer MEDICAID ==
[2020-10-16 12:16] VITALS: BP 126/79
--- NOTE | 2020-10-16 12:18 | Event Note ---
ED Screening Note Date of service: 10/16/20 Time: 12:16 ED Screening Note: Patient is a 24-year-old -[place] female with a history of anxiety and depression who presents to the ED with complaint of acute onset persistent chest tightness, hyperventilation, nausea, diffuse abdominal pain and tightness for the last 6 hours. Patient states that she initially started having a panic attack and that subsequently her symptoms got worse. Patient states that her chest tightness and hyperventilation are characteristic of a chronic anxiety attacks whenever these occur. Patient states that she does not take any medication for anxiety and depression. Patient denies dizziness, syncope, coug h, vomiting, diarrhea, chest pain, shortness of breath, fever, chills, sore throat, headache, syncope or dysuria and urinary frequency and urgency. This initial assessment/diagnostic orders/clinical plan/treatment(s) is/are subject to change based on patients health status, clinical progression and re- assessment by fellow clinical providers in the ED. Further treatment and workup at subsequent clinical providers discretion. Patient/guardian urged not to elope from the ED as their condition may be serious if not clinically assessed and managed. Initial orders include: EKG, troponin, CBC, CMP, UA, hCG serum
[2020-10-16 13:52] LABS: Basophils # (Auto) 0.1 K/mm3 (0.0-0.1); Basophils % (Auto) 1.2 % (0.0-1.8); Eosinophils # (Auto) 0.2 K/mm3 (0.0-0.4); Eosinophils % (Auto) 4.2 % (0.0-4.3); Hematocrit 32.8 % (30.3-42.9); Hemoglobin 10.5 gm/dl (10.1-14.3); Lymphocytes # (Auto) 1.9 K/mm3 (1.2-5.4); Lymphocytes % (Auto) 35.9 % (13.4-35.0); Mean Corpuscular HGB Conc 32 % (30-34); Mean Corpuscular Volume 78 fl (79-97); Monocytes # (Auto) 0.8 K/mm3 (0.0-0.8); Monocytes % (Auto) 14.1 % (0.0-7.3); Platelet Count 234 K/mm3 (140-440); Red Blood Count 4.23 M/mm3 (3.65-5.03); Red Cell Distribution Width 17.8 % (13.2-15.2)
[2020-10-16 14:14] LABS: Alanine Aminotransferase 9 units/L (7-56); Albumin 4.3 g/dL (3.9-5); BUN/Creatinine Ratio 9; Blood Urea Nitrogen 8 mg/dL (7-17); Calcium 9.3 mg/dL (8.4-10.2); Hemolysis Index 0
--- NOTE | 2020-10-22 12:36 | Electrocardiograph Report ---
[facility] Test Date: 2020-10-16 Test Time: 13:17:23 Pat Name: KELLEY GARY Department: Room: Gender: F Plastics Nurse: KAL : [id number] Requested By: LUCAS BARNETT Order Number: [id number] Reading MD: Elia Myers Measurements Intervals [place] Rate: 70 P: 62 [place]: 164 QRS: 80 QRSD: 74 T: 49 QT: 390 QTc: 422 Interpretive Statements Sinus rhythm ST elev, probable normal early repol pattern No previous ECG available for comparison Electronically Signed On 10-22-2020 12:36:35 EDT by Elia Myers
== END 2020-10-16 15:21 | disposition left against medical advice (07) ==
LOC: ED 12:02
DX: F41.9 Anxiety disorder, unspecified (principal); Z53.21 Procedure and treatment not carried out due to patient leaving prior to being seen by health care provider
CPT/HCPCS: 36415; 80053; 84484; 84703; 85025; 93005

== ENCOUNTER 2020-12-01 11:21 | Emergency (ER) | payer MEDICAID ==
[2020-12-01 14:12] VITALS: BP 107/54
[2020-12-01] MEDS ORDERED: ONDANSETRON 4 MG ODT TAB PO ONE (14:32)
[2020-12-01] MEDS ORDERED: ACETAMINOPHEN 325 MG TAB PO ONE (14:32)
--- NOTE | 2020-12-01 14:42 | Emergency Department Report ---
- General Chief Complaint: Dyspnea/Respdistress Stated Complaint: POSS COVID Time Seen by Provider: 12/01/20 14:32 Source: patient Mode of arrival: Ambulatory Limitations: No Limitations - History of Present Illness Initial Comments: Patient is a 25-year-old female presents emergency room complaints of concerns for COVID-19. She states that her symptoms began on 11/26/2020. She states that she has associated generalized body aches, chills, fever, nausea, vomiting, diarrhea, occasional dry cough. She denies any abdominal pain, shortness of breath, chest pain. She has been able to tolerate some p.o. intake. She denies any known sick contacts or recent travel. 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 She has not been vaccinated for COVID-19. Past medical history of anemia, hypertension, anxiety. No allergies to medicines. Last menstrual cycle 11/24/2020. - Related Data Previous Rx's Medication Instructions Recorded Last Taken Type Azithromycin [Zithromax TAB] 500 mg PO QDAY #4 tablet 01/08/15 07/06/18 Rx Nitrofurantoin [place]/M-Cryst 100 mg PO Q12HR #14 capsule 01/08/15 Unknown Rx [Macrobid CAP] Phenazopyridine [Pyridium] 200 mg PO TID #6 tab 01/08/15 Unknown Rx Ibuprofen [Motrin] 800 mg PO Q8HR PRN #20 tablet 02/21/15 08/06/18 22:00 Rx Promethazine Dm (Nf) [Phenergan Dm 5 ml PO Q6H PRN #60 ml 02/21/15 Unknown Rx 6.25/15 mg 5 ml] Docusate Sodium [Colace] 100 mg PO BID PRN #60 capsule 08/07/18 Unknown Rx Ferrous Sulfate [Feosol 325 MG tab] 325 mg PO BID #60 tablet 08/07/18 Unknown Rx Ibuprofen [Motrin 800 MG tab] 800 mg PO TID PRN #30 tablet 08/07/18 Unknown Rx Lidocain2.5%/Prilocai2.5% [Emla] 5 gm TP PRN #1 tube 08/07/18 Unknown Rx Acetaminophen [Non-Aspirin Extra 500 mg PO Q6HR PRN #30 tablet 03/23/19 Unknown Rx Strength] Ibuprofen [Motrin] 600 mg PO Q8H PRN #30 tablet 03/23/19 Unknown Rx Penicillin V Potassium 500 mg PO TID #30 tablet 03/23/19 Unknown Rx Benzonatate [Tessalon Perles] 100 mg PO Q8HR PRN #12 capsule 12/01/20 Unknown Rx Ondansetron [Zofran Odt] 4 mg PO Q8HR PRN #10 tab.rapdis 12/01/20 Unknown Rx Allergies Allergy/AdvReac Type Severity Reaction Status Date / Time No Known Allergies Allergy Verified 10/16/20 13:13 ED Review of Systems ROS: Stated complaint: POSS COVID Other details as noted in HPI Comment: All other systems reviewed and negative ED Past Medical Hx - Past Medical History Previous Medical History?: Yes Hx Hypertension: Yes Hx Diabetes: No Hx Deep Vein Thrombosis: No Hx Renal Disease: No Hx Sickle Cell Disease: No Hx Headaches / Migraines: Yes Hx Seizures: No Hx Psychiatric Treatment: Yes (Anxiety, depression) Hx Asthma: No Hx HIV: No - Social History Smoking Status: Current Every Day Smoker Substance Use Type: Marijuana - Medications Home Medications: Home Medications Medication Instructions Recorded Confirmed Last Taken Type Azithromycin [Zithromax TAB] 500 mg PO QDAY #4 tablet 01/08/15 08/07/18 07/06/18 Rx Nitrofurantoin [place]/M-Cryst 100 mg PO Q12HR #14 capsule 01/08/15 08/07/18 Unknown Rx [Macrobid CAP] Phenazopyridine [Pyridium] 200 mg PO TID #6 tab 01/08/15 08/07/18 Unknown Rx Ibuprofen [Motrin] 800 mg PO Q8HR PRN #20 tablet 02/21/15 08/07/18 08/06/18 22:00 Rx Promethazine Dm (Nf) [Phenergan Dm 5 ml PO Q6H PRN #60 ml 02/21/15 08/07/18 Unknown Rx 6.25/15 mg 5 ml] Docusate Sodium [Colace] 100 mg PO BID PRN #60 capsule 08/07/18 Unknown Rx Ferrous Sulfate [Feosol 325 MG tab] 325 mg PO BID #60 tablet 08/07/18 Unknown Rx Ibuprofen [Motrin 800 MG tab] 800 mg PO TID PRN #30 tablet 08/07/18 Unknown Rx Lidocain2.5%/Prilocai2.5% [Emla] 5 gm TP PRN #1 tube 08/07/18 Unknown Rx Acetaminophen [Non-Aspirin Extra 500 mg PO Q6HR PRN #30 tablet 03/23/19 Unknown Rx Strength] Ibuprofen [Motrin] 600 mg PO Q8H PRN #30 tablet 03/23/19 Unknown Rx Penicillin V Potassium 500 mg PO TID #30 tablet 03/23/19 Unknown Rx Benzonatate [Tessalon Perles] 100 mg PO Q8HR PRN #12 capsule 12/01/20 Unknown Rx Ondansetron [Zofran Odt] 4 mg PO Q8HR PRN #10 tab.rapdis 12/01/20 Unknown Rx ED Physical Exam - General Limitations: No Limitations General appearance: alert, in no apparent distress - Head Head exam: Present: atraumatic, normocephalic - Eye Eye exam: Present: normal appearance - ENT ENT exam: Present: mucous membranes moist - Respiratory Respiratory exam: Present: normal lung sounds bilaterally. Absent: respiratory distress, wheezes, rales, rhonchi, stridor, chest wall tenderness, accessory muscle use, decreased breath sounds, prolonged expiratory - Cardiovascular Cardiovascular Exam: Present: regular rate, normal rhythm, normal heart sounds. Absent: systolic murmur, diastolic murmur, rubs, gallop - Neurological Exam Neurological exam: Present: alert, oriented X3 - Psychiatric Psychiatric exam: Present: normal affect, normal mood - Skin Skin exam: Present: warm, dry, intact ED Course Vital Signs 12/01/20 12/01/20 12/01/20 14:10 14:54 15:17 Temperature 100.9 F H Pulse Rate 100 H 88 Respiratory 20 16 16 Rate Blood Pressure 107/54 O2 Sat by Pulse 100 98 Oximetry ED Medical Decision Making - Lab Data Vital Signs 12/01/20 12/01/20 12/01/20 14:10 14:54 15:17 Temperature 100.9 F H Pulse Rate 100 H 88 Respiratory 20 16 16 Rate Blood Pressure 107/54 O2 Sat by Pulse 100 98 Oximetry - Medical Decision Making Patient is a 25-year-old female presents emergency room complaints of concerns for COVID-19. She states that her symptoms began on 11/26/2020. She states that she has associated generalized body aches, chills, fever, nausea, vomiting, diarrhea, occasional dry cough. She denies any abdominal pain, shortness of breath, chest pain. She has been able to tolerate some p.o. intake. She denies any known sick contacts or recent travel. 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 She has not been vaccinated for COVID-19. Past medical history of anemia, hypertension, anxiety. No allergies to medicines. Last menstrual cycle 11/24/2020. Initial vitals with fever, given Tylenol. On exam breath sounds are clear bilaterally, no wheezing, no rales, no rhonchi. Patient was able to tolerate p.o. intake on the emergency department without any difficulty and had no episodes of vomiting. Symptoms likely related to viral URI. Given that we are in a COVID-19 pandemic, discussed the possibility of COVID-19 with patient, discuss strict return precautions, discussed outpatient testing, discussed self quarantine. This hospital facility is only testing for admitted COVID-19 patients. She has no signs of severe COVID at this time, her oxygen is 100% on room air. Patient given prescription for medications. Advised patient Please take medication as prescribed as needed. Please increase your fluid intake over the next several days. May take Tylenol as needed for fever or body aches. May take [id number] cold symptom relief medication such as Mucinex or TheraFlu. Follow-up with a primary care doctor for reexamination. Return to emergency room immediately for any new or worsening symptoms including but not limited to difficulty breathing, shortness of breath, severe chest pain, unable to tolerate by mouth intake, etc. Please self quarantine for 10 days from the onset of your symptoms. Please do not go out in public. If you are around others at home please wear a mask. If you need to cough or sneeze please do so in a napkin and immediately throw it away and immediately wash your hands. Wash your hands frequently. Wipe everything down. Recommend for you to get COVID-19 testing, may have this done at primary care doctor, health department, [facility], etc. recommend for you to get a pulse oximetry meter [id number] and if your oxygen is below 93% please return to emergency room. Critical care attestation.: If time is entered above; I have spent that time in minutes in the direct care of this critically ill patient, excluding procedure time. ED Disposition Clinical Impression: Viral URI Disposition: DC-01 TO HOME OR SELFCARE Is pt being admited?: No Does the pt Need Aspirin: No Condition: Stable Instructions: COVID-19: How to Protect Yourself and Others - CDC, COVID-19, Viral Respiratory Infection Additional Instructions: Please take medication as prescribed as needed. Please increase your fluid intake over the next several days. May take Tylenol as needed for fever or body aches. May take [id number] cold symptom relief medication such as Mucinex or TheraFlu. Follow-up with a primary care doctor for reexamination. Return to emergency room immediately for any new or worsening symptoms including but not limited to difficulty breathing, shortness of breath, severe chest pain, unable to tolerate by mouth intake, etc. Please self quarantine for 10 days from the onset of your symptoms. Please do not go out in public. If you are around others at home please wear a mask. If you need to cough or sneeze please do so in a napkin and immediately throw it away and immediately wash your hands. Wash your hands frequently. Wipe everything down. Recommend for you to get COVID-19 testing, may have this done at primary care doctor, health department, [facility], etc. recommend for you to get a pulse oximetry meter [id number] and if your oxygen is below 93% please return to emergency room. Prescriptions: Benzonatate [Tessalon Perles] 100 mg PO Q8HR PRN #12 capsule PRN Reason: cough Ondansetron [Zofran Odt] 4 mg PO Q8HR PRN #10 tab.rapdis PRN Reason: nausea/vomiting Referrals: ORALIA LOPEZ MD [Staff Physician] - 3-5 Days [facility] [Provider Group] - 3-5 Days Forms: Work/School Release Form(ED) Time of Disposition: 14:40 Print Language: NICARAGUAN
== END 2020-12-01 15:17 | disposition home or self-care (01) ==
LOC: ED 11:21
DX: J06.9 Acute upper respiratory infection, unspecified (principal); B97.89 Other viral agents as the cause of diseases classified elsewhere; I10 Essential (primary) hypertension; G43.909 Migraine, unspecified, not intractable, without status migrainosus; F41.9 Anxiety disorder, unspecified; F17.200 Nicotine dependence, unspecified, uncomplicated; F12.90 Cannabis use, unspecified, uncomplicated; Z79.899 Other long term (current) drug therapy
CPT/HCPCS: 99282; Q0162

== ENCOUNTER 2021-09-12 13:21 | Emergency (ER) | payer MEDICAID ==
[2021-09-12] MEDS ORDERED: hydrALAZINE 25 MG TAB PO ONE (13:58)
[2021-09-12 14:30] LABS: Basophils # (Auto) 0.1 K/mm3 (0.0-0.1); Eosinophils # (Auto) 0.4 K/mm3 (0.0-0.4); Eosinophils % (Auto) 5.6 % (0.0-4.3); Hematocrit 35.5 % (30.3-42.9); Hemoglobin 11.4 gm/dl (10.1-14.3); Lymphocytes # (Auto) 2.7 K/mm3 (1.2-5.4); Lymphocytes % (Auto) 33.9 % (13.4-35.0); Mean Corpuscular HGB Conc 32 % (30-34); Mean Corpuscular Volume 79 fl (79-97); Monocytes # (Auto) 0.7 K/mm3 (0.0-0.8); Monocytes % (Auto) 8.8 % (0.0-7.3); Platelet Count 210 K/mm3 (140-440); Red Blood Count 4.46 M/mm3 (3.65-5.03)
[2021-09-12 14:46] LABS: Alanine Aminotransferase 9 units/L (7-56); Albumin 4.8 g/dL (3.9-5); BUN/Creatinine Ratio 11; Blood Urea Nitrogen 9 mg/dL (7-17); Calcium 10.2 mg/dL (8.4-10.2); Hemolysis Index 5
--- NOTE | 2021-09-12 15:14 | Emergency Department Report ---
ED General Adult HPI - General Chief complaint: Anxiety Stated complaint: ANXIETY ATTACK Time Seen by Provider: 09/12/21 13:56 Source: patient, EMS Mode of arrival: Stretcher Limitations: No Limitations - History of Present Illness Initial comments: Please 25-year-old female who presents for anxiety and chest pain x2 weeks. This is a recurrent problem for this. There is been no fevers no chills no cough no dizziness or lightheadedness. Symptoms are exacerbated by stress. Symptoms are relieved by nothing tried. Fevers or chills. Denies productive cough. Chest pain is rated at 4/10 described as tightness. There is no wheezing no stridor. Patient denies relieving factors patient's not currently taking psychiatric medications. Patient denies SI or HI. States he arrived today via POV of boyfriend. States she is just having life stressors. - Related Data Previous Rx's Medication Instructions Recorded Last Taken Type Azithromycin [Zithromax TAB] 500 mg PO QDAY #4 tablet 01/08/15 07/06/18 Rx Nitrofurantoin [place]/M-Cryst 100 mg PO Q12HR #14 capsule 01/08/15 Unknown Rx [Macrobid CAP] Phenazopyridine [Pyridium] 200 mg PO TID #6 tab 01/08/15 Unknown Rx Ibuprofen [Motrin] 800 mg PO Q8HR PRN #20 tablet 02/21/15 08/06/18 22:00 Rx Promethazine Dm (Nf) [Phenergan Dm 5 ml PO Q6H PRN #60 ml 02/21/15 Unknown Rx 6.25/15 mg 5 ml] Docusate Sodium [Colace] 100 mg PO BID PRN #60 capsule 08/07/18 Unknown Rx Ferrous Sulfate [Feosol 325 MG tab] 325 mg PO BID #60 tablet 08/07/18 Unknown Rx Ibuprofen [Motrin 800 MG tab] 800 mg PO TID PRN #30 tablet 08/07/18 Unknown Rx Lidocain2.5%/Prilocai2.5% [Emla] 5 gm TP PRN #1 tube 08/07/18 Unknown Rx Acetaminophen [Non-Aspirin Extra 500 mg PO Q6HR PRN #30 tablet 03/23/19 Unknown Rx Strength] Ibuprofen [Motrin] 600 mg PO Q8H PRN #30 tablet 03/23/19 Unknown Rx Penicillin V Potassium 500 mg PO TID #30 tablet 03/23/19 Unknown Rx Benzonatate [Tessalon Perles] 100 mg PO Q8HR PRN #12 capsule 12/01/20 Unknown Rx Ondansetron [Zofran Odt] 4 mg PO Q8HR PRN #10 tab.rapdis 12/01/20 Unknown Rx cephALEXin [Keflex] 500 mg PO BID 7 Days #14 cap 09/12/21 Unknown Rx hydrOXYzine HCL [Atarax] 25 mg PO Q6HR PRN #12 tablet 09/12/21 Unknown Rx Allergies Allergy/AdvReac Type Severity Reaction Status Date / Time No Known Allergies Allergy Verified 09/12/21 13:23 ED Review of Systems ROS: Stated complaint: ANXIETY ATTACK Other details as noted in HPI Constitutional: denies: chills, fever Eyes: denies: eye pain, eye discharge, vision change ENT: denies: ear pain, throat pain Respiratory: denies: cough, shortness of breath, wheezing Cardiovascular: denies: chest pain, palpitations Endocrine: no symptoms reported Gastrointestinal: denies: abdominal pain, nausea, vomiting, diarrhea Genitourinary: denies: urgency, dysuria, discharge Musculoskeletal: denies: back pain, joint swelling, arthralgia Skin: denies: rash, lesions Neurological: denies: headache, weakness, paresthesias, vertigo Psychiatric: anxiety. denies: depression, auditory hallucinations, visual hallucinations, homicidal thoughts, suicidal thoughts Hematological/Lymphatic: denies: easy bleeding, easy bruising ED Past Medical Hx - Past Medical History Hx Hypertension: Yes Hx Diabetes: No Hx Deep Vein Thrombosis: No Hx Renal Disease: No Hx Sickle Cell Disease: No Hx Headaches / Migraines: Yes Hx Seizures: No Hx Psychiatric Treatment: Yes (Anxiety, depression) Hx Asthma: No Hx HIV: No - Social History Smoking Status: Current Every Day Smoker Substance Use Type: Marijuana - Medications Home Medications: Home Medications Medication Instructions Recorded Confirmed Last Taken Type Azithromycin [Zithromax TAB] 500 mg PO QDAY #4 tablet 01/08/15 09/12/21 07/06/18 Rx Nitrofurantoin [place]/M-Cryst 100 mg PO Q12HR #14 capsule 01/08/15 09/12/21 Unknown Rx [Macrobid CAP] Phenazopyridine [Pyridium] 200 mg PO TID #6 tab 01/08/15 09/12/21 Unknown Rx Ibuprofen [Motrin] 800 mg PO Q8HR PRN #20 tablet 02/21/15 09/12/21 08/06/18 22:00 Rx Promethazine Dm (Nf) [Phenergan Dm 5 ml PO Q6H PRN #60 ml 02/21/15 09/12/21 Unknown Rx 6.25/15 mg 5 ml] Docusate Sodium [Colace] 100 mg PO BID PRN #60 capsule 08/07/18 09/12/21 Unknown Rx Ferrous Sulfate [Feosol 325 MG tab] 325 mg PO BID #60 tablet 08/07/18 09/12/21 Unknown Rx Ibuprofen [Motrin 800 MG tab] 800 mg PO TID PRN #30 tablet 08/07/18 09/12/21 Unknown Rx Lidocain2.5%/Prilocai2.5% [Emla] 5 gm TP PRN #1 tube 08/07/18 09/12/21 Unknown Rx Acetaminophen [Non-Aspirin Extra 500 mg PO Q6HR PRN #30 tablet 03/23/19 09/12/21 Unknown Rx Strength] Ibuprofen [Motrin] 600 mg PO Q8H PRN #30 tablet 03/23/19 09/12/21 Unknown Rx Penicillin V Potassium 500 mg PO TID #30 tablet 03/23/19 09/12/21 Unknown Rx Benzonatate [Tessalon Perles] 100 mg PO Q8HR PRN #12 capsule 12/01/20 09/12/21 Unknown Rx Ondansetron [Zofran Odt] 4 mg PO Q8HR PRN #10 tab.rapdis 12/01/20 09/12/21 Unknown Rx cephALEXin [Keflex] 500 mg PO BID 7 Days #14 cap 09/12/21 Unknown Rx hydrOXYzine HCL [Atarax] 25 mg PO Q6HR PRN #12 tablet 09/12/21 Unknown Rx ED Physical Exam - General Limitations: No Limitations General appearance: alert, in no apparent distress - Head Head exam: Present: normocephalic, normal inspection - Eye Eye exam: Present: normal appearance, EOMI Pupils: Present: normal accommodation - ENT ENT exam: Present: normal orophraynx, mucous membranes moist, TM's normal bilaterally, normal external ear exam - Neck Neck exam: Present: normal inspection - Respiratory Respiratory exam: Present: normal lung sounds bilaterally. Absent: respiratory distress, wheezes, stridor, chest wall tenderness - Cardiovascular Cardiovascular Exam: Present: regular rate, normal rhythm, normal heart sounds. Absent: systolic murmur, diastolic murmur, rubs, gallop - GI/Abdominal GI/Abdominal exam: Present: soft, normal bowel sounds. Absent: distended, tenderness - Rectal Rectal exam: Present: deferred - Extremities Exam Extremities exam: Present: normal inspection, full ROM, normal capillary refill. Absent: tenderness - Back Exam Back exam: Present: normal inspection, full ROM. Absent: CVA tenderness (R), CVA tenderness (L) - Neurological Exam Neurological exam: Present: alert, oriented X3, CN II-XII intact, normal gait, reflexes normal. Absent: motor sensory deficit - Expanded Neurological Exam Expanded Patient oriented to: Present: person, place, time Speech: Present: fluid speech Motor strength exam: RUE: 5, LUE: 5, RLE: 5, LLE: 5 Best Eye Response ([place]): (4) open spontaneously Best Motor Response ([place]): (6) obeys commands Best Verbal Response ([place]): (5) oriented [place] Total: 15 - Psychiatric Psychiatric exam: Present: normal affect, normal mood - Skin Skin exam: Present: warm, dry, intact, normal color. Absent: rash ED Course Vital Signs 09/12/21 09/12/21 14:20 15:14 Temperature 98.0 F Pulse Rate 84 76 Respiratory 16 Rate Blood Pressure 110/74 Blood Pressure 125/78 [Right] O2 Sat by Pulse 100 Oximetry ED Medical Decision Making - Lab Data Result diagrams: 09/12/21 14:14 09/12/21 14:14 Labs 09/12/21 09/12/21 09/12/21 14:14 14:14 14:14 WBC 7.8 RBC 4.46 Hgb 11.4 Hct 35.5 MCV 79 MCH 26 L MCHC 32 RDW 19.0 H Plt Count 210 Lymph % (Auto) 33.9 [place] % (Auto) 8.8 H Eos % (Auto) 5.6 H Baso % (Auto) 1.0 Lymph # (Auto) 2.7 [place] # (Auto) 0.7 Eos # (Auto) 0.4 Baso # (Auto) 0.1 Seg Neutrophils % 50.7 Seg Neutrophils # 4.0 Sodium 136 L Potassium 4.1 Chloride 100.5 Carbon Dioxide 21 L Anion Gap 19 BUN 9 Creatinine 0.8 Estimated GFR > 60 BUN/Creatinine Ratio 11 Glucose 76 Calcium 10.2 Total Bilirubin 1.10 AST 16 ALT 9 Alkaline Phosphatase 47 Total Protein 8.4 H Albumin 4.8 Albumin/Globulin Ratio 1.3 Urine Color Urine Turbidity Urine pH Ur Specific [place] Urine Protein Urine Glucose (UA) Urine Ketones Urine Blood Urine Nitrite Urine Bilirubin Urine Urobilinogen Ur Leukocyte Esterase Urine WBC (Auto) Urine RBC (Auto) U Epithel Cells (Auto) Urine Mucus Urine HCG, Qual Salicylates < 0.3 L Acetaminophen 09/12/21 09/12/21 14:14 Unknown WBC RBC Hgb Hct MCV MCH MCHC RDW Plt Count Lymph % (Auto) [place] % (Auto) Eos % (Auto) Baso % (Auto) Lymph # (Auto) [place] # (Auto) Eos # (Auto) Baso # (Auto) Seg Neutrophils % Seg Neutrophils # Sodium Potassium Chloride Carbon Dioxide Anion Gap BUN Creatinine Estimated GFR BUN/Creatinine Ratio Glucose Calcium Total Bilirubin AST ALT Alkaline Phosphatase Total Protein Albumin Albumin/Globulin Ratio Urine Color Yellow Urine Turbidity Hazy Urine pH 9.0 H Ur Specific [place] 1.016 Urine Protein <15 mg/dl Urine Glucose (UA) Neg Urine Ketones 80 Urine Blood Neg Urine Nitrite Neg Urine Bilirubin Neg Urine Urobilinogen 4.0 Ur Leukocyte Esterase Sm Urine WBC (Auto) 8.0 H Urine RBC (Auto) 2.0 U Epithel Cells (Auto) 6.0 Urine Mucus 1+ Urine HCG, Qual Negative Salicylates Acetaminophen 5.0 L - Medical Decision Making Symptoms are resolved with medications given in ED. UA noted for leukocytes and WBCs plan plan treat for UTI. Patient will follow-up with primary care doctor in 2 to 3 days. Patient will follow-up with [facility] department and 1 to 2 days. Patient is currently alert oriented x3 amatory with no acute distress there is no shortness of breath no chest pain no dizziness or lightheadedness there is no nausea or vomiting. Critical care attestation.: If time is entered above; I have spent that time in minutes in the direct care of this critically ill patient, excluding procedure time. ED Disposition Clinical Impression: Stress UTI (urinary tract infection) Qualifiers: Urinary tract infection type: acute cystitis Hematuria presence: without hematuria Qualified Code(s): N30.00 - Acute cystitis without hematuria Disposition: HOME / SELF CARE / HOMELESS Is pt being admited?: No Does the pt Need Aspirin: No Condition: Stable Instructions: Urinary Tract Infection, Adult Additional Instructions: Take medication as prescribed, follow-up with your doctor in 2 to 3 days. Foll ow-up with [facility] department in 1 to 2 days. Return to emergency should symptoms worsen. Prescriptions: hydrOXYzine HCL [Atarax] 25 mg PO Q6HR PRN #12 tablet PRN Reason: anxious cephALEXin [Keflex] 500 mg PO BID 7 Days #14 cap Referrals: PRIMARY CAREMD [Primary Care Provider] - 3-5 Days ORALIA LOPEZ MD [Staff Physician] - 3-5 Days [facility] [Outside] - 3-5 Days Forms: Work/School Release Form(ED) Time of Disposition: 17:25
[2021-09-12 15:16] VITALS: BP 125/78
[2021-09-12 16:56] LABS: Bilirubin,Urine NEG (Negative); Blood,Urine NEG (Negative); Color,Urine Yellow (Yellow); Mucus,Urine 1+ /HPF; Protein,Urine <15 mg/dL mg/dL (Negative)
[2021-09-12 16:57] LABS: HCG Qualitative,Urine Negative (Negative)
[2021-09-12 17:02] LABS: Benzodiazepines Screen,Urine Negative; Cocaine Screen,Urine Negative; Methadone Screen,Urine Negative; Opiate Screen,Urine Negative
[2021-09-12] MEDS ORDERED: hydrOXYzine HCL 25 MG TAB PO ONE (17:07)
[2021-09-12 17:18] LABS: Amphetamine Screen,Urine Positive; Cannabinoid Screen,Urine Positive
== END 2021-09-12 17:41 | disposition home or self-care (01) ==
LOC: ED 13:21
DX: F43.9 Reaction to severe stress, unspecified (principal); N39.0 Urinary tract infection, site not specified; I10 Essential (primary) hypertension; F41.9 Anxiety disorder, unspecified; G43.909 Migraine, unspecified, not intractable, without status migrainosus; F17.200 Nicotine dependence, unspecified, uncomplicated; Z79.899 Other long term (current) drug therapy
CPT/HCPCS: 36415; 80053; 80307; 81001; 81025; 85025; 99284; Q0177; 80320; 99283; G0480